=== PATIENT | female | born 1990 | race Caucasian/White ===

== ENCOUNTER 2017-06-14 18:05 | Emergency (ER) | payer OTHER ==
[~2017-06-14] VITALS: Ht 144.8 cm; Wt 81.1 kg
[~2017-06-14 18:05] MED LIST: PRENTAB26 PO
[2017-06-14 18:09] VITALS: BP 122/74; PULSE 111; TEMP 36.7; O2SAT 98; Ht 144.8 cm; Wt 81.1 kg
--- NOTE | 2017-06-14 19:04 | DIAGNOSTIC IMAGING REPORT ---
CHEST ONE VIEW PORTABLE CLINICAL HISTORY: 27 years-old Female presenting with cough, flulike symptoms. TECHNIQUE: Portable upright AP view of the chest was obtained. COMPARISON: None. FINDINGS: Cardiomediastinal silhouette normal. Lungs and pleural spaces clear. Osseous structures normal. Upper abdomen normal. IMPRESSION: 1. No acute cardiopulmonary disease. Electronically signed by: Talat Barbosa M.D. 06/14/2017 7:03 PM Dictated Date/Time: 06/14/2017 7:02 PM
[2017-06-14] MEDS ORDERED: OMEP20CA9 PO (19:14)
[2017-06-14] MEDS ORDERED: MEDR150I19 IM (19:14)
--- NOTE | 2017-06-14 21:05 | EMERGENCY ROOM VISIT NOTE ---
History Report prepared by Melanie: Kymberly Santana Under the Supervision of: Vishal BeardO. First contact with patient: 18:14 Chief Complaint: FLU LIKE SX Stated Complaint: COLD WITH MUCUS AND VERY RUNNY NOSE History of Present Illness The patient is a 27 year old female who presents to the Emergency Room with complaints of persistent flu like symptoms that began 5 days ago. The patient states she has a productive cough with green mucous, rhinorrhea, congestion, itchy ears for the past several days. She notes that when she sits back and is very congested she is also fullness in her chest. She denies any exertional chest pain or shortness of breath. She has no cardiac risk factors. She notes that a lot of people in her apartment building have the flu. The patient states that she is anemic. She notes all of her immunizations are up to date. Pt denies headache, change in vision, fevers, shortness of breath, nausea, vomiting , diarrhea, pain with urination, and melena. Patient denies diabetes, hypertension, hyperlipidemia, CAD, history of sudden at a young age. Patient denies swelling of calves, recent trips, history of immobilization or recent surgery, prior history of DVT, hemoptysis, history of malignancy, or control/estrogen use. Source of History: patient Onset: 5 days ago Position: other (global) Quality: other (flu like symptoms) Timing: other (persistent ) Associated Symptoms: + cough, + chest pain (while laying down) Review of Systems See HPI for pertinent positives & negatives. A total of 10 systems reviewed and were otherwise negative. Past Medical & Surgical Medical Problems: (1) Asthma (2) Irregular menstrual cycle Family History Cancer FH: HTN (hypertension) FH: diabetes mellitus FH: kidney disease FH: seizures Gallbladder disease Heart disease Lung disease Social History Smoking Status: Former Smoker Alcohol Use: occasionally Drug Use: none Housing Status: lives with family Occupation Status: employed Current/Historical Medications Scheduled Medroxyprogesterone Acetate (C (Medroxyprogesterone Aceta), 150 MG IM UD Multivit/Min/Iron/Fol Ac/Pren ( Vitamin), 1 TAB PO DAILY Omeprazole (Prilosec), 20 MG PO DAILY Allergies Uncoded Allergies: PENCILLIN (Allergy, Mild, UNSURE OF REACTION HAPPENED A TODDLER, 09/20/15) Physical Exam Vital Signs Date Time Temp Pulse Resp B/P (MAP) Pulse Ox O2 Delivery O2 Flow Rate FiO2 06/14/17 18:09 36.7 111 18 122/74 98 Room Air Physical Exam GENERAL: Sitting up in bed, alert, well appearing, well nourished, no distress, non-toxic, Dry, non-productive cough. EYE EXAM: normal conjunctiva. OROPHARYNX: No exudate, no erythema, lips, buccal mucosa, and tongue normal and mucous membranes are moist EAR: TM clear bilaterally NECK: supple, no nuchal rigidity, no adenopathy, non-tender LUNGS: Clear to auscultation. Normal chest wall mechanics HEART: no murmurs, S1 normal and S2 normal ABDOMEN: abdomen soft, non-tender, normo-active bowel sounds, no masses, no rebound or guarding. BACK: Back is symmetrical on inspection and there is no deformity, no midline tenderness, no CVA tenderness. SKIN: no rashes and no bruising UPPER EXTREMITIES: upper extremities are grossly normal. LOWER EXTREMITIES: No pitting edema. NEURO EXAM: Normal sensorium, cranial nerves II-XII grossly intact, normal speech, no gross weakness of arms, no gross weakness of legs. Medical Decision & Procedures ER Provider Diagnostic Interpretation: Radiology results as stated below per my review and the radiologist's interpretation: CHEST ONE VIEW PORTABLE CLINICAL HISTORY: 27 years-old Female presenting with cough, flulike symptoms. TECHNIQUE: Portable upright AP view of the chest was obtained. COMPARISON: None. FINDINGS: Cardiomediastinal silhouette normal. Lungs and pleural spaces clear. Osseous structures normal. Upper abdomen normal. IMPRESSION: 1. No acute cardiopulmonary disease. Electronically signed by: Talat Barbosa M.D. 06/14/2017 7:03 PM Dictated Date/Time: 06/14/2017 7:02 PM ECG Indication: other (fever) Rate (beats per minute): 104 Rhythm: sinus tachycardia Findings: left axis deviation, no ectopy ED Course ED COURSE: Vital signs were reviewed and showed normal vitals The patients medical record was reviewed The above diagnostic studies were performed and reviewed. ED treatments and interventions as stated above. 1: The patient was evaluated in room A12A. A complete history and physical examination was performed. 1931: I reevaluated the patient, who was resting comfortable. I discussed test findings with her and she verbalized complete understanding. 1940: Upon reevaluation, the patient is resting.I discussed my findings with the patient and she understands and agrees with the treatment plan. The patient was discharged home. Medical Decision Differential diagnosis: Etiologies such as viral syndrome, otitis, pharyngitis, pneumonia, influenza, meningitis, urinary tract infection, sepsis, bacteremia, as well as others were entertained. The patient is a 27 year old female who presents to the ED with complaints of flu like symptoms. Patient complains of a cough with green productive mucus, runny nose, congestion. She notes that everyone on her floor is sick with the same symptoms. No significant comorbidities. Chest x-ray was unremarkable. Influenza A and B were both negative on her child. Based on her symptoms I do believe that this is a viral URI. EKG was obtained as she complains of a fullness in her chest but she has really congested. I do not believe this is cardiac. Patient was updated bedside. She is discharged follow-up with PCP with a viral URI. Discussed with Pt concerning signs and symptoms to watch out for. Pt was instructed to follow up with their PCP and discussed with the patient their option to return to the ED at anytime for persistent or worsening symptoms. The appropriate anticipatory guidance and out-patient management, including indications for return to the emergency department, were explained at length to the patient and understood. Medication Reconcilliation Current Medication List: was personally reviewed by me Blood Pressure Screening Patient's blood pressure: Normal blood pressure Impression Primary Impression: Viral URI Scribe Attestation The scribe's documentation has been prepared under my direction and personally reviewed by me in its entirety. I confirm that the note above accurately reflects all work, treatment, procedures, and medical decision making performed by me. Departure Information Dispostion Home / Self-Care Referrals No Doctor, Assigned (PCP) Forms HOME CARE DOCUMENTATION FORM, IMPORTANT VISIT INFORMATION Patient Instructions My [facility] Additional Instructions Please follow up with your primary care doctor with in the next 24 hours. Any worsening of your symptoms, please return to the ED immediately. This includes any fevers greater than 100.4, worsening pain, chest pain, shortness breath, persistent nausea, vomiting, unable to eat or drink, or any other concerning signs or symptoms from your standpoint. Please try to remain as hydrated as possible. Please take Tylenol or Motrin as needed for fevers.
== END 2017-06-14 19:40 | disposition home or self-care (01) ==
LOC: C.EDB 18:06 → C.EDA 19:40
DX: J06.9 Acute upper respiratory infection, unspecified (principal); J45.909 Unspecified asthma, uncomplicated; Z82.49 Family history of ischemic heart disease and other diseases of the circulatory system; Z83.3 Family history of diabetes mellitus; Z82.0 Family history of epilepsy and other diseases of the nervous system; Z87.891 Personal history of nicotine dependence